=== PATIENT | male | born 2000 | race Caucasian/White ===

== ENCOUNTER 2024-04-24 10:10 | Outpatient (REF) | payer MEDICAID, SELFPAY ==
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
--- OUTSIDE RECORDS SUMMARY | 2024-04-24 12:06 | XMS_ITS | Encounter Summary ---
Author Organization [employer] Address [address] [facility] 7t [place] [address] Care Team Providers Care Premium Cancellation Clerk Name Role Phone Christina Jordan MD Primary Care Provider [phone] Reason for Visit * Reason Onset Date Comments Nurse Triage 04/22/2024 Encounter Details Date Type Department Care Team ([facility] st Contact Info) Description 04/22/2024 Telephone [facility] [address] [place], [place] [phone] Christina Jordan MD 505 [place] [address] Nurse Triage Social History Tobacco Use Types Packs/Day Years Used Date Smoking Tobacco: Never Passive Smoke Exposure: Never Smokeless Tobacco: Never Alcohol Use Standard Drinks/Week Comments Never 0 (1 standard drink = 0.6 oz pur e alcohol) Depression Answer Date Recorded Patient Health Questionnaire-9 Score 3 02/29/2024 Patient Health Questionnaire-9 Score 3 02/29/2024 Last PHQ-9: Questionnaire Data Not on file 0 02/29/2024 Housing Stability Answer Date Recorded What is your housing situation today? I have henrietta cronin 12/05/[address] you li ve. Do you have problems with any of the following? None of the above 12/05/2022 Food Insecurity Answer Date Recorded Within the past 12 months, y ou worried that your food would run out before you got money to buy more: Never True 12/05/2022 Within the past 12 months,th e food you bought just didn't last and you didn't have enough money to get more: Never True Transportation Answer Date Recorded In the past 12 months, has l ack of transportation kept you from medical appts, meetings, work or from getting things needed for daily living? No 12/05/2022 Utilities Answer Date Recorded In the past 12 months, has t he electric, gas, oil or water company threatened to shut off services in your home? No 12/05/2022 Depression Answer Date Recorded Patient Health Questionnaire-2 Score 3 02/29/2024 Sex and Gender Information Value Date Recorded Sex Assigned at Male 10/14/2022 4:00 PM EDT Legal Sex Male 3:53 PM EDT Gender Identity Male 10/14/2022 4:00 PM EDT Sexual Orientation Straight 10/14/2022 4: 00 PM EDT documented as of this encounter Miscellaneous Notes * Telephone Encounter - Keely Perry RN - 04/22/2024 11:18 AM EST Date: 04/18/24 Hospital: [facility] Seen for: mental state Symptomatic Yes depression *if yes message should go to Triage . Called pt. Partner Reny back on HIPAA. No answer. Voicemail box is full. Unable to leave message. Called back x2. Pt. Was brought to [facility] ED for suicidal and severe depressive thoughts. Pt was stabilized and was aloud to be released home with Father signing a contract for safety. Pt. Is stable at present denies any suicidal thoughts or plans of self harm. Pt. Wants to discuss need for SSI ? Possibly get counseling services re- established and ED wanted fu for pt. Will request that Clinical coordinators get [facility] ED note from 04/18-04/19/24 scanned into chart for visit. Protocol Used: Depression (Adult) Protocol-Based Disposition: See in Office or Video Visit within 3 Days- appt. Made for 04/24/24 at 915am in [facility]. Video visit offer not recorded Positive Triage Questions: * Requesting to talk with a counselor (mental health worker, psychiatrist, etc.) * Patient wants to be seen * History of manic-depression (bipolar disorder) * All higher-acuity triage questions were negative Care Advice Discussed: * Treatment With Counseling * Telephone Encounter - Katty Carr - 04/22/2024 10:31 AM EST Patient partner calling to report ED visit on : Date: 04/18/24 Hospital: [facility] Seen for: mental state Symptomatic Yes depression *if yes message should go to Triage Patient advised will forward to team nurse for follow up documented in this encounter Plan of Treatment Upcoming Encounters Date Type Department Care Team ([facility] st Contact Info) Description 07/25/2024 1:45 PM EDT Office Visit [facility] MED & PEDS [address] [place] [address] Kiana Bojorquez MD [address] [place] [address] documented as of this encounter Visit Diagnoses Not on filedocumented in this encounter Additional Health Concerns Assessment Noted Time PHQ-9 Depression Total Score: 3 02/28/19 25 3:09 PM EST documented as of this encounter Care Teams Premium Cancellation Clerk Relationship Specialty Start Date End Date Christina Jordan MD [address] [place] [address] PCP - General Family Medicine 10/15/22 04/23/24 [facility] [address] [place] [address] Psychiatrist 09/22/23 documented as of this encounter
--- OUTSIDE RECORDS SUMMARY | 2024-04-24 12:06 | XMS_ITS | Encounter Summary ---
Author Organization [employer] Address [address] [facility] 7 [place] [address] Care Team Providers Care Dock Superintendent Name Role Phone Kiana Bojorquez MD Primary Care Provider [phone] Reason for Visit * Reason Onset Date Comments Change PCP 04/24/2024 Encounter Details Date Type Department Care Team ([facility] Contact Info) Description 04/24/2024 Telephone [facility] MED & PEDS [address] [place], [place] [phone] Kiana Bojorquez MD [address] [place], [place] [phone] Change PCP Social History Tobacco Use Types Packs/Day Years [...] encounter Miscellaneous Notes * Telephone Encounter - Nati Landaverde - 04/24/2024 10:55 AM EST Patient was in for visit and requested a change in pcp from Dr. Jordan to Dr. Bojorquez. Spoke to [facility] Land Surveyor Manager , and request granted. documented in this encounter Plan of Treatment Upcoming Encounters Date Type Department Care Team (Late st Contact Info) Description 07/25/2024 1:45 PM EDT Office Visit [facility] MED & PEDS [address] [place] [address] Kiana Bojorquez MD [address] [place] [address] documented as of this encounter Visit Diagnoses Not on filedocumented in this encounter Additional Health Concerns Assessment Noted Time PHQ-9 Depression Total Score: 2 04/25/19 9:52 AM EST documented as of this encounter Care Teams Dock Superintendent Relationship Specialty Start Date End Date Kiana Bojorquez MD [address] [place] [address] PCP - General Internal Medicine 04/24/24 [facility]. [address] [place] [address] Psychiatrist 09/22/23 documented as of this encounter
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
--- OUTSIDE RECORDS SUMMARY | 2024-04-24 12:06 | XMS_ITS | Encounter Summary ---
Author Organization [employer] Address [address] [facility] [address] 7[address] [place] [address] Care Team Providers Care Security Incident Handler Name Role Phone Christina Jordan MD Primary Care Provider [phone] Kiana Bojorquez MD Primary Care Provider [phone] Encounter Details Date Type Department Care Team (Late st Contact Info) Description 03/14/2024 Telephone [facility] MEDICINE [address] [place], [place] [phone] Christina Jordan MD [address] [place], [place] [phone] Social History Tobacco Use Types Packs/Day Years [...] Description 07/25/2024 1:45 PM EDT Office Visit [facility] MED & PEDS [address] [place] [address] Kiana Bojorquez MD [address] [place] [address] documented as of this encounter Visit Diagnoses Not on filedocumented in this encounter Additional Health Concerns Assessment Noted Time PHQ-9 Depression Total Score: 3 02/28/19 25 3:09 PM EST documented as of this encounter Care Teams Security Incident Handler Relationship Specialty Start Date End Date Christina Jordan MD [address] [place] [address] PCP - General Family Medicine 10/15/22 04/23/24 Kiana Bojorquez MD [address] [place] [address] PCP - General Internal Medicine 04/24/24 [facility] [address] [place] [address] Psychiatrist 09/22/23 documented as of this encounter
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
[2024-04-24 14:03] LABS: MANUAL DIFF FLAG NO
[2024-04-24 14:07] LABS: Basophils Percent Auto 0.5 % (0-2); Eosinophils Absolute Auto 0.1 X10*3/uL (0.0-0.4); Eosinophils Percent Auto 1.6 % (0-4); Hematocrit 40.6 % (42.0-52.0); Hemoglobin 13.6 g/dl (14.0-18.0); Imm Gran Abs Auto 0.07 X10*3/uL (0.00-0.03); Imm Gran Pct Auto 0.9 % (0.0-0.4); Lymphocytes Percent Auto 26.4 % (20-40); Mean Corpuscular HGB Conc 33.5 g/dl (31.0-36.0); Mean Corpuscular Hemoglobin 28.7 pg (27.0-33.0); Mean Corpuscular Volume 85.7 fL (80.0-98.0); Mean Platelet Volume 9.6 fL (9.4-12.4); Monocytes Absolute Auto 0.6 X10*3/uL (0.1-1.2); Monocytes Percent Auto 8.3 % (2-11); Neutrophils Absolute Auto 4.6 x10*3/uL (2.0-8.3); Neutrophils Percent Auto 62.3 % (45-73); Platelet Count 295 X10*3/uL (160-400); Red Blood Count 4.74 X10*6/uL (4.60-5.80); Red Cell Distribution Width 12.3 % (11.0-16.0); White Blood Count 7.4 X10*3/uL (4.8-10.8)
[2024-04-24 14:36] LABS: Alanine Aminotransferase 27 U/L (0-40); Albumin Level 4.2 g/dL (3.5-5.0); Alkaline Phosphatase 95 U/L (39-117); Anion Gap 9 (12-20); Aspartate Amino Transferase 32 U/L (5-37); Bilirubin Total 0.2 mg/dL (0.0-1.0); Blood Urea Nitrogen 15 mg/dL (9-16); Calcium 9.4 mg/dL (8.4-10.2); Carbon Dioxide 27 mmol/L (22-29); Chloride 104 mmol/L (96-108); Estimated Glomerular Filt Rate > 60; Glucose Random 74 mg/dL (60-115); Potassium 4.3 mmol/L (3.3-5.1); Sodium 136 mmol/L (135-145); Total Protein 7.3 g/dL (6.5-8.0)
[2024-04-25 08:46] LABS: ~HepC Num1 0.11 S/CO (0.00-0.79); ~Hepatitis C Antibody Nonreactive (Nonreactive)
== END 2024-04-24 10:11 | disposition home or self-care (01) ==
LOC: HO.CHCLDS 10:10
PROVIDERS: Visit Provider Internal Medicine
DX: F39 Unspecified mood [affective] disorder (principal); F19.90 Other psychoactive substance use, unspecified, uncomplicated
CPT/HCPCS: 36415; 80053; 84443; 85025; 86803